=== PATIENT | female | born 2000 | race Caucasian/White ===

== ENCOUNTER 2022-12-13 01:52 | Emergency (ER) | payer BC, MEDICARE ==
[~2022-12-13] VITALS: Ht 160 cm; Wt 51.1 kg
[2022-12-13 01:54] VITALS: TEMP 97.1
[2022-12-13] MEDS ORDERED: birth control patch (02:44)
[2022-12-13] MEDS ORDERED: ONDANSETRON 4MG 2ML VIAL As Ordered ONE (03:24)
[2022-12-13] MEDS ORDERED: NS 1,000 ML IV ONE (03:25)
[2022-12-13] MEDS ORDERED: ONDANSETRON 4MG 2ML VIAL IV ONE (03:25)
[2022-12-13 03:56] LABS: BASO % 0.3 % (0.0-1.0); EOS % 0.2 % (0.0-3.0); HEMATOCRIT 39.4 % (36.0-47.0); HEMOGLOBIN 12.7 g/dl (12.0-15.5); LYMPH # 0.4 10^3/uL (1.5-5.0); LYMPH % 3.8 % (24.0-44.0); MEAN CORPUSCULAR HEMOGLOBIN 27.5 pg (27.0-33.0); MEAN CORPUSCULAR HGB CONC 32.2 g/dl (32.0-36.5); MEAN CORPUSCULAR VOLUME 85.5 fl (80.0-96.0); MONO # 0.3 10^3/uL (0.0-0.8); MONO % 3.2 % (2.0-8.0); NEUTROPHILS % 92.2 % (36.0-66.0); PLATELET COUNT, AUTOMATED 260 10^3/uL (150-450); RED BLOOD COUNT 4.61 10^6/uL (4.00-5.40); WHITE BLOOD COUNT 9.8 10^3/uL (4.0-10.0)
[2022-12-13 04:25] LABS: BLOOD UREA NITROGEN 6 MG/DL (9-23); CALCIUM LEVEL 8.9 MG/DL (8.5-10.1); CARBON DIOXIDE LEVEL 21 MMOL/L (20-31); CHLORIDE LEVEL 107 MMOL/L (98-107); CREATININE FOR GFR 0.55 MG/DL (0.55-1.30); GLUCOSE, FASTING 86 MG/DL (60-100); POTASSIUM SERUM 3.7 MMOL/L (3.5-5.1); SODIUM LEVEL 138 MMOL/L (136-145)
[2022-12-13 04:45] VITALS: BP 119/74
[2022-12-13 04:52] VITALS: O2SAT 97
[2022-12-13] MEDS ORDERED: ONDA4TAB6 PO (04:57)
[2022-12-13] MEDS ORDERED: ONDANSETRON 4MG ORAL DISINTEGRATING TAB PO ONE (05:00)
== END 2022-12-13 06:03 | disposition home or self-care (01) ==
LOC: M ED 01:52
DX: R11.2 Nausea with vomiting, unspecified (principal)
CPT/HCPCS: 80048; 83735; 85025; 96361; 96374; 99284; J2405

== ENCOUNTER 2023-03-26 21:08 | Emergency (ER) | payer BC ==
[~2023-03-26] VITALS: Ht 160 cm; Wt 50.0 kg
[~2023-03-26 21:08] MED LIST: ONDA4TAB6 PO; birth control patch
[2023-03-27] MEDS ORDERED: ISOVUE-370 76% 100ML VIAL As Ordered ONE (00:09)
[2023-03-27 02:00] VITALS: BP 127/72; TEMP 98.3; O2SAT 100
[2023-03-27 02:10] LABS: BASO # 0.1 10^3/uL (0.0-0.2); BASO % 0.8 % (0.0-1.0); EOS # 0.2 10^3/uL (0.0-0.5); EOS % 2.2 % (0.0-3.0); HEMATOCRIT 38.6 % (36.0-47.0); HEMOGLOBIN 12.7 g/dl (12.0-15.5); LYMPH # 2.8 10^3/uL (1.5-5.0); LYMPH % 35.3 % (24.0-44.0); MEAN CORPUSCULAR HEMOGLOBIN 28.2 pg (27.0-33.0); MEAN CORPUSCULAR HGB CONC 32.9 g/dl (32.0-36.5); MEAN CORPUSCULAR VOLUME 85.8 fl (80.0-96.0); MONO # 0.4 10^3/uL (0.0-0.8); MONO % 4.4 % (2.0-8.0); NEUTROPHILS # 4.5 10^3/uL (1.5-8.5); NEUTROPHILS % 57.2 % (36.0-66.0); PLATELET COUNT, AUTOMATED 277 10^3/uL (150-450); WHITE BLOOD COUNT 7.9 10^3/uL (4.0-10.0)
[2023-03-29 14:08] LABS: ACETYLCHOLINE RCPTOR BINDING A < 0.03 nmol/L (0.00-0.24); HCG SERUM TUMOR MARKER QUANT < 1 mIU/mL (.)
== END 2023-03-27 02:26 | disposition home or self-care (01) ==
LOC: M ED 21:08
DX: R07.9 Chest pain, unspecified (principal); E32.0 Persistent hyperplasia of thymus; F17.200 Nicotine dependence, unspecified, uncomplicated; Z79.83 Long term (current) use of bisphosphonates; Z79.899 Other long term (current) drug therapy
CPT/HCPCS: 36415; 71275; 80047; 83519; 83615; 84702; 85025; 99284; Q9967

== ENCOUNTER → 2024-03-31 | Outpatient (CLI) | payer BC ==
[~2024-03-31] MED LIST changes: +ONDA-282 PO; -ONDA4TAB6 PO
[2024-03-31 17:21] LABS: BASO # 0.1 10^3/uL (0.0-0.2); EOS # 0.3 10^3/uL (0.0-0.5); EOS % 4.5 % (0.0-3.0); HEMATOCRIT 40.8 % (36.0-47.0); LYMPH # 2.1 10^3/uL (1.5-5.0); LYMPH % 30.4 % (24.0-44.0); MEAN CORPUSCULAR HEMOGLOBIN 28.1 pg (27.0-33.0); MEAN CORPUSCULAR HGB CONC 31.9 g/dl (32.0-36.5); MEAN CORPUSCULAR VOLUME 88.1 fl (80.0-96.0); MONO # 0.3 10^3/uL (0.0-0.8); MONO % 4.8 % (2.0-8.0); NEUTROPHILS # 4.2 10^3/uL (1.5-8.5); NEUTROPHILS % 59.2 % (36.0-66.0); PLATELET COUNT, AUTOMATED 298 10^3/uL (150-450); RED BLOOD COUNT 4.63 10^6/uL (4.00-5.40)
[2024-03-31 17:31] LABS: ERYTHROCYTE SEDIMENTATION RATE 11 mm/hr (0-20)
[2024-03-31 20:46] LABS: ALBUMIN 3.7 G/DL (3.2-5.2); ALKALINE PHOSPHATASE 95 U/L (46-116); ALT/SGPT 16 U/L (7.0-40); AST/SGOT 12 U/L (<34); BILIRUBIN,TOTAL 0.8 MG/DL (0.3-1.2); BLOOD UREA NITROGEN 9 MG/DL (9-23); CALCIUM LEVEL 9.1 MG/DL (8.5-10.1); CARBON DIOXIDE LEVEL 27 MMOL/L (20-31); CHLORIDE LEVEL 108 MMOL/L (98-107); CREATININE FOR GFR 0.61 MG/DL (0.55-1.30); GLOMERULAR FILTRATION RATE > 60.0 (>60); GLUCOSE, FASTING 86 MG/DL (60-100); SODIUM LEVEL 142 MMOL/L (136-145); TOTAL PROTEIN 6.9 G/DL (5.7-8.2)
[2024-03-31 20:48] LABS: THYROID STIMULATING HORMONE 0.829 uIU/ML (0.55-4.78); THYROXINE (T4) 15.1 UG/DL (4.5-10.9)
[2024-03-31 22:05] LABS: RHEUMATOID FACTOR QUANT 10.9 IU/ML (<14)
[2024-03-31 22:07] LABS: TOTAL T3 182.5 NG/DL (60.0-181.0)
[2024-03-31 22:08] LABS: THYROGLOBULIN ANTIBODY < 15.0 U/ML (<60.0); THYROID PEROXIDASE ANTIBODY 36 U/ML (<60.0)
== END ==
LOC: M WUC 13:45
PROVIDERS: ATTEND Allergy & Immunology Allergy
DX: T78.01XA Anaphylactic reaction due to peanuts, initial encounter (principal); L50.1 Idiopathic urticaria

== ENCOUNTER 2024-07-13 15:00 | Outpatient (CLI) | payer BC ==
[~2024-07-13] VITALS: Ht 160 cm; Wt 54.5 kg
[2024-07-13 13:00] VITALS: BP 130/79; O2SAT 100
[~2024-07-13 15:00] MED LIST changes: +ALBUTEROL SULFATE 2.5MG/0.5ML INH NEB SOLN INH PRN; +EPINEPHrine INJ 1 MG/ML 1ML AMP IM PRN; +diphenhydrAMINE 50MG/ML VIAL IV PRN; +methylPREDNISolone 125MG 2ML VIAL IV PRN
[2024-07-13] MEDS: FERRIC CARBOXYMALTOSE 750 MG (VIAL MATE) IN 100ML NS IV ONE (15:18)
== END 2024-07-13 16:03 ==
LOC: M INFU 15:00
PROVIDERS: ATTEND Internal Medicine Hematology
DX: D50.9 Iron deficiency anemia, unspecified (principal)
CPT/HCPCS: 96365; J1439